=== PATIENT | male | born 1995 ===

== ENCOUNTER 2023-07-09 | Outpatient (REF) | payer OTHER, SELFPAY ==
[2023-07-13 21:08] LABS: Neisseria gonorrhoeae, NAA Negative (Negative)
== END 2023-07-09 00:01 | disposition home or self-care (01) ==
LOC: LAB
PROVIDERS: PCP Nurse Practitioner Primary Care; Visit Provider Nurse Practitioner Primary Care
DX: Z72.51 High risk heterosexual behavior (principal)
CPT/HCPCS: 87491; 87591